=== PATIENT | female | born 1995 | race Caucasian/White ===

== ENCOUNTER 2018-08-23 11:37 | Emergency (ER) | payer OTHER, BC ==
[2018-08-23] MEDS: ACETAMINOPHEN 325 MG TAB PO (14:02)
[2018-08-23] MEDS: ONDANSETRON 4 MG ORAL DISINTEGRATING TAB (Q0162 PER 1MG) PO (14:03)
[2018-08-23] MEDS: IBUPROFEN 600 MG TAB PO (14:03)
== END 2018-08-23 14:32 | disposition home or self-care (01) ==
LOC: M ED 11:37
DX: S13.4XXA Sprain of ligaments of cervical spine, initial encounter (principal); R51 Headache; V49.50XA Passenger injured in collision with unspecified motor vehicles in traffic accident, initial encounter
CPT/HCPCS: Q0162

== ENCOUNTER 2020-03-20 02:24 | Emergency (ER) | payer OTHER ==
[~2020-03-20] VITALS: Ht 175.3 cm; Wt 87.2 kg
[~2020-03-20 02:24] MED LIST: IBUP-1022 PO; MONO0.25 PO; ZOFR4TAB14 PO
[2020-03-20 05:00] VITALS: BP 124/82
== END 2020-03-20 05:19 | disposition home or self-care (01) ==
LOC: M ED 02:24
DX: M79.602 Pain in left arm (principal); Z88.6 Allergy status to analgesic agent

== ENCOUNTER 2022-11-10 12:18 | Outpatient (CLI) | payer OTHER ==
[~2022-11-10] VITALS: Ht 175.3 cm; Wt 104.1 kg
[2022-11-10] MEDS ORDERED: PRENTAB9 PO (12:34)
[2022-11-10] MEDS ORDERED: IRON65TA2 PO (12:34)
[2022-11-10 12:37] VITALS: BP 121/69
[2022-11-10] MEDS ORDERED: HOME MED LIST COMPLETE! XX SCH (12:40)
== END 2022-11-10 14:19 | disposition home or self-care (01) ==
LOC: M LDO 12:18
PROVIDERS: ATTEND Obstetrics & Gynecology
DX: O36.8130 Decreased fetal movements, third trimester, not applicable or unspecified (principal); O40.3XX9 Polyhydramnios, third trimester, other fetus; Z86.32 Personal history of gestational diabetes; Z3A.33 33 weeks gestation of pregnancy
CPT/HCPCS: 59025; 76815; G0463